=== PATIENT | female | born 1980 | race African-American/Black ===

== ENCOUNTER 2018-03-27 07:22 | Emergency (ER) | payer MEDICAID ==
[~2018-03-27] VITALS: Ht 182.9 cm; Wt 70.5 kg
[~2018-03-27 07:22] MED LIST: COLON CLEANSE PO; IRON 27 MG PO; LORTAB 5/500 501 TAB PO; MIRENA52 MG IY; MOTRIN 600600 MG/TAB PO; NO HOME MEDICATIONS; PEN-VEE K250 MG PO; PENICILLIN V500 MG PO; PERCOCET 325 MG1 TA2 PO; PRENATAL1 TA7 PO; PROFERRIN ES12 MG; SENOKOT S 50 MG1 TAB PO; ULTRAM 50MG TAB50 MG PO
[2018-03-27 07:47] VITALS: BP 127/62; PULSE 95; TEMP 97.9
== END 2018-03-27 07:47 | disposition home or self-care (01) ==
LOC: COL.ER 07:22
DX: T16.1XXA Foreign body in right ear, initial encounter (principal)

== ENCOUNTER 2020-10-14 16:13 | Inpatient (IN) | payer MEDICAID ==
[2020-10-14] VITALS (18 sets, daily range): BP systolic 102–138; BP diastolic 66–78; PULSE 67–104; TEMP 98.1–98.8
[~2020-10-14] VITALS: Ht 182.9 cm; Wt 91.8 kg
[~2020-10-14 16:13] MED LIST changes: +PRENATAL TABLET PO
--- NOTE | 2020-10-14 16:15 | NUR ---
154- Pt arrives on unit ambulatory with spouse. Into bathroom to change into gown. Pt states her water broke around 1500 today, clear fluid and has continued to leak since then. Puddle of clear fluid noted on bathroom floor. 1550- Pt into bed. EFM and TOCO on and tracing. Pt states she is having intermittent cramping. Denies VB. States +FM. Assessment completed. VSS. 1615- Amniotrace negative, fluid noted on chux pad. SVE /-3,large amount of clear fluid noted with exam. SROM +.
--- NOTE | 2020-10-14 16:47 | NUR ---
1647- EFM and TOCO off. Pt up to void. 1658- Pt ambulates with this RN and spouse to OR.
[2020-10-14 17:12] LABS: BASO # 0.1 (0.0-0.2); BASO % 0.3 % (0.0-2.0); EOS # 0.2 (0.0-0.7); GRAN # 11.9 (1.4-6.5); HEMOGLOBIN 12.5 g/dl (12.5-16.0); LYMPH # 2.1 (1.2-3.4); LYMPH % 13.8 % (20.0-51.0); MEAN CELL VOLUME 80 fl (80.0-100.0); MEAN CORPUSCULAR HEMOGLOBIN 29 pg (27.0-31.0); MEAN CORPUSCULAR HGB CONC 36 g/dl (33.0-37.0); MEAN PLATELET VOLUME 9.3 fl (7.4-10.4); MONO # 0.7 (0.1-0.6); MONO % 4.4 % (1.7-9.3); PLATELET COUNT 301 K/mm3 (130-400); RED BLOOD COUNT 4.35 M/mm3 (4.10-5.30); REDCELL DISTRIBUTION WIDTH-CV 13.2 % (11.5-14.5)
[2020-10-14 17:15] LABS: HEMATOCRIT 34.9 % (37.0-47.0)
--- NOTE | 2020-10-14 21:00 | NUR ---
IV to INT. Ambulates to bathroom with steady gait, simon catheter dc'd, performs own pericare, clean gown on and ambulates back to bed.
[2020-10-15 01:30] VITALS: BP 105/64; PULSE 88; TEMP 98.2
[2020-10-15 04:00] VITALS: BP 111/62; PULSE 86; TEMP 98.1
[2020-10-15] MEDS ORDERED: PERCOCET 325 MG1 TA2 PO (08:14)
[2020-10-15] MEDS ORDERED: IBU600 MG PO (08:14)
[2020-10-15 08:20] VITALS: BP 133/74; PULSE 102; TEMP 99.3
--- NOTE | 2020-10-15 08:40 | NUR ---
Patient refuses COVID testing.
--- NOTE | 2020-10-15 08:43 | NUR ---
Initial visit; Patient thanked Registered Massage Therapist for offering congratulations and God's blessings for the of her son. Registered Massage Therapist thanked patient for choosing [facility].
[2020-10-15 11:10] VITALS: BP 122/73; PULSE 85; TEMP 97.6
[2020-10-15 16:40] VITALS: BP 112/69; PULSE 88; TEMP 97.5
--- NOTE | 2020-10-15 18:45 | NUR ---
1845- DISCHARGE INSTRUCTIONS GIVEN AND PT VERBALIZES UNDERSTANDING. PT SIGNS PAPERWORK AND QUESTIONS ANSWERED. PT DISMISSED TO HOME PER WHEELCHAIR WITH BABY AND BELONGINGS ACCOMPANIED BY SIGNIFICANT OTHER.
== END 2020-10-15 18:45 | disposition home or self-care (01) | DRG 788 ==
LOC: LDRO 16:13 → LDR 16:14 → OB 16:14
PROVIDERS: ADMIT Obstetrics & Gynecology
PROC: 10D00Z1 Extraction of Products of Conception, Low, Open Approach (ICD-10-PCS; principal; 2020-10-14)
DX: O34.211 Maternal care for low transverse scar from previous cesarean delivery (principal); Z37.0 Single live birth; D57.3 Sickle-cell trait; O99.02 Anemia complicating childbirth; Z3A.38 38 weeks gestation of pregnancy
CPT/HCPCS: J0690; J1885; J2370; J2405; J2590; J2791; J3010; J7120

== ENCOUNTER 2023-12-09 16:20 | Inpatient (IN) | payer SELFPAY ==
[~2023-12-09] VITALS: Ht 182.9 cm; Wt 53.1 kg
[~2023-12-09 16:20] MED LIST changes: +FOLIC ACID 11 MG/TA1 PO; +IBU600 MG PO; +K-TAB10 PO; +MULTI VITAMINS1 TAB PO; +NATURE'S BLEND100 M2 PO; +NEURONTIN100 MG/CAP PO; +NICODERM C14 MG/PATC TD; +PROTONIX 40MG T40 MG PO
[2023-12-09] MEDS ORDERED: Folic Acid 1 MG,Thiamine 200 MG in NS 1,000 ML IV ONE ×2 (17:00→20:00)
[2023-12-09 17:10] LABS: BASO % 0.6 % (0.0-2.0); GRAN # 4.8 K/mm3 (1.4-6.5); GRAN % 75.1 % (42.2-75.2); HEMOGLOBIN 11.2 g/dl (12.5-16.0); LYMPH # 1.2 K/mm3 (1.2-3.4); LYMPH % 19.1 % (20.0-51.0); MEAN CELL VOLUME 100 fl (80.0-100.0); MEAN CORPUSCULAR HEMOGLOBIN 35 pg (27-31); MEAN CORPUSCULAR HGB CONC 35 g/dl (33.0-37.0); MONO # 0.3 K/mm3 (0.1-0.6); MONO % 4.4 % (1.7-9.3); PLATELET COUNT 78 K/mm3 (130-400); RED BLOOD COUNT 3.21 M/mm3 (4.10-5.30)
[2023-12-09 17:13] LABS: HEMATOCRIT 32.1 % (37.0-47.0)
[2023-12-09 17:14] LABS: INR 1.5 (0.8-3.0); PROTHROMBIN TIME 16.4 SECONDS (9.7-12.8)
[2023-12-09 17:28] LABS: ALANINE AMINOTRANSFERASE 177 U/L (0-55); ALBUMIN 3.1 gm/dL (3.5-5.0); ALKALINE PHOSPHATASE 374 U/L (40-150); ANION GAP 23 mmol/L (7-16); AST,SGOT 593 U/L (5-34); BILIRUBIN,TOTAL 15.7 mg/dL (0.2-1.2); BLOOD UREA NITROGEN 7 mg/dL (7-19); CALCIUM 8.9 mg/dL (8.4-10.2); CARBON DIOXIDE 29 mmol/L (22-29); CHLORIDE 90 mmol/L (98-107); CREATININE, serum 0.65 mg/dL (0.57-1.11); GLUCOSE 91 mg/dL (70-99); LIPASE 18 U/L (8-78); POTASSIUM 3.4 mmol/L (3.5-4.5); SODIUM 142 mmol/L (136-145); TOTAL PROTEIN 6.4 gm/dL (6.2-8.1)
[2023-12-09 17:30] LABS: ALCOHOL(ethanol),MEDICAL < 10 mg/dL (0-10)
[2023-12-09] MEDS ORDERED: Iohexol 300 - 100 ML VIAL IV ONE (17:57)
[2023-12-09] MEDS ORDERED: NS 50 ML IV SCH (17:58)
[2023-12-09 19:40] LABS: COLLECTION METHOD CLEAN CATCH
[2023-12-09] MEDS ORDERED: Acetaminophen 325 MG TAB PO PRN (19:45)
[2023-12-09] MEDS ORDERED: Magnesium Sulfate 4% 50 ML IV ONE (19:45)
[2023-12-09] MEDS ORDERED: Ondansetron 4 MG/2 ML VIAL IV PRN (19:45)
[2023-12-09] MEDS ORDERED: Mag/Al Hydrox/Simeth Susp 30 ML CUP PO PRN (19:45)
[2023-12-09] MEDS ORDERED: Magnesium Sulfate 8% 50 ML IV ONE (19:45)
[2023-12-09] MEDS ORDERED: LORazepam 2 MG/ML 1 ML VIAL IV PRN (19:45)
[2023-12-09 19:49] LABS: PH 7.5 (5.0-8.5); URINE APPEARANCE CLEAR (CLEAR/HAZY); URINE BLOOD NEGATIVE (NEGATIVE); URINE COLOR Dark Yellow (YELLOW); URINE GLUCOSE NEGATIVE (NEGATIVE); URINE KETONE 1+ (NEGATIVE); URINE NITRATE POSITIVE (NEGATIVE); URINE PROTEIN(semi-quant) NEGATIVE (NEGATIVE)
[2023-12-09] MEDS ORDERED: D5 1/2 NS 1,000 ML IV SCH (20:00)
--- NOTE | 2023-12-09 20:29 | NUR ---
ER CALLED FOR REPORT. REPORT RECIEVED FROM [facility] AT 2028.
[2023-12-09 20:50] VITALS: BP 122/80; PULSE 90; TEMP 99.2
--- NOTE | 2023-12-09 20:50 | NUR ---
FEMALE PATIENT ARRIVED TO ROOM #354 FROM ER VIA STRETCHER. PATIENT ASSISTED TO BED WITH SLIDE METHOD. PATIENT TOLERATED WELL. INT TO LEFT FOREARM INTACT WITH NO COMPLICATIONS NOTED. TELEMETRY INTACT. INITAL INTERVIEW AND INITAL ASSESSMENT COMPLETED. HEALED SORES NOTED TO BUTTOCK AND SCATTERED BACK. PATIENT TOLERATED WELL. PATIENT REQUESTED SANDWICH, GRAPE JUICE, AND WATER. ALL GIVEN. PATIENT VERBALIZED UNDERSTANDING OF CALL LIGHT AND BED CONTROLS. PATIENT DENIES ANY OTHER NEEDS AT THIS TIME. BED IN LOW POSITION WITH WHEELS LOCKED WITH RAILS UP X3 AND CALL LIGHT WITHIN REACH. BED ALARM ON.
[2023-12-09 21:24] LABS: TRICYCLIC ANTIDEPRESS URINE NEGATIVE (NEGATIVE)
--- NOTE | 2023-12-09 21:30 | NUR ---
PATIENT RESTING IN BED WITH NO FAMILY PRESENT WITH NO ACUTE DISTRESS NOTED. PATIENT ON ROOM AIR. MEDICATION ADMINISTRATION COMPLETED AT THIS TIME. PATIENT TOLERATED WELL. PATIENT DENIES ANY NEEDS AT THIS TIME. BED IN LOW POSITION WITH WHEELS LOCKED WITH RAILS UP X3 AND CALL LIGHT WITHIN REACH. BED ALARM ON.
[2023-12-09 22:08] VITALS: BP 129/83; PULSE 98; TEMP 98.4
[2023-12-09 23:46] VITALS: BP 112/76; PULSE 85; TEMP 98.4
[2023-12-10] VITALS (18 sets, daily range): BP systolic 86–133; BP diastolic 38–83; PULSE 74–95; TEMP 94–98.8
[2023-12-10] MEDS ORDERED: NS 1,000 ML IV SCH (05:00)
[2023-12-10 06:20] LABS: BASO % 0.5 % (0.0-2.0); EOS # 0.1 K/mm3 (0.0-0.7); EOS % 0.8 % (0.0-4.0); GRAN # 5.9 K/mm3 (1.4-6.5); GRAN % 71.8 % (42.2-75.2); LYMPH # 1.9 K/mm3 (1.2-3.4); LYMPH % 23.1 % (20.0-51.0); MEAN CELL VOLUME 99 fl (80.0-100.0); MEAN CORPUSCULAR HGB CONC 35 g/dl (33.0-37.0); MEAN PLATELET VOLUME 11.3 fl (7.4-10.4); MONO # 0.3 K/mm3 (0.1-0.6); PLATELET COUNT 68 K/mm3 (130-400); RED BLOOD COUNT 2.63 M/mm3 (4.10-5.30); REDCELL DISTRIBUTION WIDTH-CV 14.1 % (11.5-14.5)
[2023-12-10 06:27] LABS: ALBUMIN 2.5 gm/dL (3.5-5.0); BILIRUBIN,TOTAL 11.9 mg/dL (0.2-1.2); CALCIUM 7.9 mg/dL (8.4-10.2); CREATININE, serum 0.54 mg/dL (0.57-1.11)
[2023-12-10 06:28] LABS: HEMATOCRIT 25.9 % (37.0-47.0); HEMOGLOBIN 9.1 g/dl (12.5-16.0); MEAN CORPUSCULAR HEMOGLOBIN 35 pg (27-31)
[2023-12-10 06:37] LABS: POTASSIUM 2.3 mmol/L (3.5-4.5)
[2023-12-10 06:39] LABS: BILIRUBIN,DIRECT 9.6 mg/dL (0.0-0.5)
[2023-12-10 06:47] LABS: THYROID STIMULATING HORMONE 5.319 uIU/mL (0.350-4.940)
[2023-12-10] MEDS ORDERED: Multivitamin TAB PO SCH (08:00)
[2023-12-10] MEDS ORDERED: Potassium Chloride 100 ML IV SCH (08:00)
[2023-12-10] MEDS ORDERED: Potassium Bicarbonate/Citrate 20 MEQ Effervescent TAB PO ONE (08:00)
[2023-12-10] MEDS ORDERED: Potassium Chloride 10 mEq/100 mL IV Soln IV SCH (09:00)
[2023-12-10] MEDS ORDERED: Nicotine 14 MG DAILY PATCH TD SCH (09:00)
[2023-12-10] MEDS ORDERED: Folic Acid 1 MG TAB PO SCH (09:00)
[2023-12-10] MEDS ORDERED: ONE-A-DAY ESSE1 EACH PO (10:00)
--- NOTE | 2023-12-10 10:13 | NUR ---
Initial visit attempt; Patient continues to sleep. Requirements Manager left card offering [facility] and God's blessing for healing.
--- NOTE | 2023-12-10 14:16 | NUR ---
dairy husbandry worker met with patient at bedside to discuss discharge planning. Patient verified demographic information, states she lives in [facility] alone, sees Dr. Abrams as her PCP and uses [facility]. Patient lists her mother Laurie ([phone]) as her emergency contact. Patient denies having a DPOA completed and decined to complete one at this time. Patient denies using any DME or having any in home services and states that she is independent with ADLs. Patient is uninsured at this time and has completed a medicaid application today with [facility] counselor. Discharge plan is pending at this time. Discharge: TBD
--- NOTE | 2023-12-10 14:59 | NUR ---
Patient alert and oriented x4. Patient has been sleeping off and on this shift, arouses to voice. No complaints of nausea. Tolerating food and fluids well. Scoring 4-7 on CIWA, VS stable, but tremors noted. D5 1/2 NS infusing at 75ml/hour through left forearm IV. Potassium infusing per orders. Patient has been tolerating IV potassium well. Skin noticed to be jaundiced. Weakness continues, requires x2 assist for ambulation and transfers. PT only able to assist patient in standing at bedside and taking a few steps to the side. Call light within reach, bed alarm on. All needs met at this time.
--- NOTE | 2023-12-10 15:22 | NUR ---
Patient assisted x2 to bedside commode to urinate. Legs gave out and patient required assistance in swaying body to sit back down to prevent fall. Urine bright orange and clear. Patient resting in bed with call light in reach, bed alarm on.
[2023-12-10 17:23] LABS: ANION GAP 16 mmol/L (7-16); BLOOD UREA NITROGEN < 5 mg/dL (7-19); CALCIUM 8.1 mg/dL (8.4-10.2); CARBON DIOXIDE 30 mmol/L (22-29); CHLORIDE 95 mmol/L (98-107); CREATININE, serum 0.52 mg/dL (0.57-1.11); GLUCOSE 153 mg/dL (70-99); POTASSIUM 3.2 mmol/L (3.5-4.5); SODIUM 141 mmol/L (136-145)
--- NOTE | 2023-12-10 21:05 | NUR ---
PT ALERT AND ORIENTED TO SELF AND PLACE. WAS DIFFICULT FOR PT TO GET UP TO USE THE RESTROOM, WAS ABLE TO USE THE BEDSIDE COMMODE WITH HELP OF TWO STAFF MEMBERS AND GAIT BELT. ABLE TO SWALLOW PILLS WHOLE WITH HELP. NOT ABLE TO USE UPPER EXT. D/T MODERATE WEAKNESS. BED ALARM SET, PT CALL LIGHT WITHIN REACH. CIWA PROTOCOL IN PLACE.
[2023-12-11 01:00] VITALS: BP_SYST 117
[2023-12-11 02:03] VITALS: BP 117/78; PULSE 83; TEMP 97.1
[2023-12-11 03:42] VITALS: BP 112/79; PULSE 86; TEMP 97.1
[2023-12-11 05:39] VITALS: BP_SYST 112
[2023-12-11 05:54] VITALS: BP 112/81; PULSE 99; TEMP 98.3
[2023-12-11 06:43] LABS: BASO % 0.5 % (0.0-2.0); EOS # 0.1 K/mm3 (0.0-0.7); EOS % 1.2 % (0.0-4.0); GRAN # 6.3 K/mm3 (1.4-6.5); GRAN % 78.5 % (42.2-75.2); LYMPH # 1.3 K/mm3 (1.2-3.4); LYMPH % 16.3 % (20.0-51.0); MEAN CELL VOLUME 99 fl (80.0-100.0); MEAN CORPUSCULAR HGB CONC 35 g/dl (33.0-37.0); MONO # 0.2 K/mm3 (0.1-0.6); MONO % 2.9 % (1.7-9.3); PLATELET COUNT 66 K/mm3 (130-400); RED BLOOD COUNT 2.67 M/mm3 (4.10-5.30)
[2023-12-11 06:51] LABS: HEMATOCRIT 26.4 % (37.0-47.0); HEMOGLOBIN 9.3 g/dl (12.5-16.0); MEAN CORPUSCULAR HEMOGLOBIN 35 pg (27-31)
[2023-12-11 06:59] LABS: ALANINE AMINOTRANSFERASE 130 U/L (0-55); ALBUMIN 2.6 gm/dL (3.5-5.0); ALKALINE PHOSPHATASE 293 U/L (40-150); ANION GAP 10 mmol/L (7-16); AST,SGOT 342 U/L (5-34); BILIRUBIN,TOTAL 12.5 mg/dL (0.2-1.2); BLOOD UREA NITROGEN < 5 mg/dL (7-19); CALCIUM 7.4 mg/dL (8.4-10.2); CARBON DIOXIDE 29 mmol/L (22-29); CHLORIDE 102 mmol/L (98-107); CREATININE, serum 0.58 mg/dL (0.57-1.11); GLUCOSE 196 mg/dL (70-99); POTASSIUM 3.4 mmol/L (3.5-4.5); SODIUM 141 mmol/L (136-145); TOTAL PROTEIN 5.2 gm/dL (6.2-8.1)
[2023-12-11 07:18] LABS: MAGNESIUM 2.1 mg/dL (1.6-2.6); PHOSPHOROUS 0.9 mg/dL (2.3-4.7)
[2023-12-11 07:31] VITALS: BP 116/83; BP_SYST 113; PULSE 128
[2023-12-11] MEDS ORDERED: NS IV ONE (08:45)
[2023-12-11] MEDS ORDERED: POTASSIUM PHOSHATE IV ONE (08:45)
--- NOTE | 2023-12-11 10:17 | NUR ---
Patient left facility AMA. Upon discharge SW was called down to the ED due to patient family requesting to have SW services. House Nurse Tammie assisted with conversation with family. Family stated they wanted patient to be on a 72 hour hold due to patient being incapable of caring for self. SW collaborated in discussion providing information that patient is capable of making sound decisions for self and since she has been discharged from facility we would be unable to assist with. SW did provided resources such as alcohol and drug rehab facilites as well as resource for [facility]. Information was provided when if patient is needed continued care or emergency occurs please return to ED for care.
--- NOTE | 2023-12-11 10:17 | NUR ---
Upon shift change report night RN notified this nurse that patient ripped IV out and was insisting on going home. Dr. Evans notified, patient's next of kin called. Patient states she just doesn't want to be here, she wants to be at home. Education provided to patient on necessary treatment regarding liver failure and PT/OT. Patient reminded of current condition and discussed requirement of assistance level and risks of not having assistance at home. Patient is a x2 assist and cannot walk, strength level low and cannot lift heavy items. Patient states she knows and "I can do stuff on my own. I'll be fine." Dr. Evans had conversation with patient and family and discussed options if patient is willing to stay in hospital longer, such as assistance in setting up hospice home care. Patient declined. Patient states she understands that leaving against medical advice can lead to personal injury or . Patient verbalized understanding that she is refusing necessary medical treatment. AMA form signed. Wheelchair provided for patient and family, patient escorted out by family to car.
[2023-12-15 00:08] LABS: VITAMIN B1 162.3 nmol/L (())
== END 2023-12-11 09:50 | disposition left against medical advice (07) | DRG 642 ==
LOC: COL.ER 16:20 → MEDICAL 18:49
PROVIDERS: Physician Assistant; ADMIT Internal Medicine
DX: E88.89 Other specified metabolic disorders (principal); E87.20 Acidosis, unspecified; E44.0 Moderate protein-calorie malnutrition; Z68.1 Body mass index [BMI] 19.9 or less, adult; F10.20 Alcohol dependence, uncomplicated; K70.30 Alcoholic cirrhosis of liver without ascites; F17.210 Nicotine dependence, cigarettes, uncomplicated; D64.9 Anemia, unspecified; E83.42 Hypomagnesemia; E87.6 Hypokalemia; E03.8 Other specified hypothyroidism; R53.81 Other malaise; M62.838 Other muscle spasm; Z53.29 Procedure and treatment not carried out because of patient's decision for other reasons; D69.6 Thrombocytopenia, unspecified; Z91.013 Allergy to seafood
CPT/HCPCS: J3411; J3475; J3480; J7030; Q9967